=== PATIENT | male | born 1995 ===

== ENCOUNTER → 2023-12-02 | Outpatient (CLI) | payer OTHER ==
[~2023-12-02] MED LIST: ANTIBIOTIC; SULTRIEL PO
[2023-12-02 18:27] LABS: BASOPHILS ABSOLUTE AUTO 0.04 K/mm3 (0.00-0.23); BASOPHILS PERCENT AUTO 1 % (0-2); EOSINOPHILS ABSOLUTE AUTO 0.08 K/mm3 (0.00-0.68); EOSINOPHILS PERCENT AUTO 1 % (0-6); Hematocrit 47.1 % (37.0-53.0); Hemoglobin 15.9 g/dL (13.5-17.5); IMMATURE GRAN ABSOLUTE AUTO 0.01 K/mm3 (0.00-0.10); IMMATURE GRAN PERCENT AUTO 0 % (0-1); LYMPHOCYTES ABSOLUTE AUTO 1.91 K/mm3 (0.84-5.20); LYMPHOCYTES PERCENT AUTO 31 % (21-46); MONOCYTES ABSOLUTE AUTO 0.46 K/mm3 (0.16-1.47); MONOCYTES PERCENT AUTO 8 % (4-13); Mean Corpuscular HGB Conc 33.8 g/dL (31.5-36.5); Mean Corpuscular Volume 86 fL (80-100); Mean Platelet Volume 12.4 fL (9.1-12.4); NEUTROPHILS PERCENT AUTO 59 % (41-73); Platelet Count 219 K/mm3 (150-400); RDW Coefficient Variation 12.8 % (11.7-14.2); RDW Standard Deviation 39.4 fL (35.1-46.3); Red Blood Cell Count 5.48 M/mm3 (4.30-5.90)
[2023-12-02 18:42] LABS: CHOL/HDL RATIO 4.2; Cholesterol 180 mg/dL (50-200); HDL Cholesterol 43 mg/dL (>39); LDL/HDL RATIO 2.9; Low Density Lipoprotein Chol 125 mg/dL (0-110); Triglycerides 62 mg/dL (30-140); Very Low Density Lipoprot Chol 12 mg/dL (6-28)
[2023-12-04 09:27] LABS: BILIRUBIN, TOTAL 0.3 mg/dL (0.0-1.2); CALCIUM, SERUM 9.5 mg/dL (8.7-10.2); CREATININE, SERUM 0.87 mg/dL (0.76-1.27); GLOBULIN, TOTAL 2.5 g/dL (1.5-4.5); POTASSIUM, SERUM 4.7 mmol/L (3.5-5.2); PROTEIN, TOTAL, SERUM 7.6 g/dL (6.0-8.5)
== END | disposition home or self-care (01) ==
LOC: LAB SHORT 11:35 → LAB 11:35
PROVIDERS: Student in an Organized Health Care Education/Training Program
DX: Z13.6 Encounter for screening for cardiovascular disorders (principal); R53.83 Other fatigue
CPT/HCPCS: 80053; 80061; 84443; 85025

== ENCOUNTER 2024-06-21 20:49 | Emergency (ER) | payer OTHER ==
[~2024-06-21] VITALS: Ht 182.9 cm; Wt 97.5 kg
[2024-06-21 21:05] VITALS: BP 156/95
[2024-06-21] MEDS ORDERED: Budeprion Xl300 MG PO (21:30)
[2024-06-21] MEDS ORDERED: Norco 5-325 Ta1 EACH PO (21:30)
[2024-06-21] MEDS ORDERED: ESCI20 PO (21:30)
== END 2024-06-21 21:38 | disposition home or self-care (01) ==
LOC: ER 20:49
DX: M20.011 Mallet finger of right finger(s) (principal)
CPT/HCPCS: 73140; 99283-25

== ENCOUNTER 2025-08-06 06:31 | Day surgery (SDC) | payer OTHER ==
[~2025-08-06] VITALS: Ht 182.9 cm; Wt 93.4 kg
[~2025-08-06 06:31] MED LIST changes: +Budeprion Xl300 MG PO; +ESCI20 PO; +Norco 5-325 Ta1 EACH PO
[2025-08-06] MEDS ORDERED: Lidocaine 1%-Epineph 1:200000 30 ML SDV ONE (06:58)
[2025-08-06] MEDS ORDERED: EPINEPhrine HCl 1 MG / ML 30ML Vial ONE (06:58)
[2025-08-06] MEDS ORDERED: AMIT75 PO (07:20)
[2025-08-06] MEDS ORDERED: Tranexamic Acid 100 ML IV ONE (07:51)
[2025-08-06] MEDS ORDERED: Midazolam HCl 1MG / ML 2ML Vial ONE (08:08)
[2025-08-06] MEDS ORDERED: FentaNYL Citrate 50 MCG/ML 2 ML Injection ONE (08:08)
[2025-08-06] MEDS ORDERED: Sugammadex Sodium 200 MG/2ML SDV (100 MG/ML) ONE (08:42)
--- NOTE | 2025-08-06 09:28 | NUR ---
08/06/25 0928 Radha Gonzalez REPORT RECEIVED FROM SOLO AND RN. PT ASLEEP WITH OA IN PLACE UPON ARRIVAL. ON 8L NRB. PT NOT RESPONSIVE TO VERBAL STIMULI AT THIS TIME. VSS. IV PATENT. NO DRAINAGE ON MUSTACHE DRESSING. HOB AT 30 DEGREES
--- NOTE | 2025-08-06 09:48 | NUR ---
08/06/25 0948 Radha Gonzalez PHONE RETURNED TO PATIENT PER PATIENT REQUEST
[2025-08-06 10:22] VITALS: BP 129/79
[2025-08-06] MEDS ORDERED: Dexamethasone Sod Phos 10 MG/ML 1ML VIAL XX ONE (16:08)
[2025-08-06] MEDS ORDERED: Ketorolac Tromethamine 30mg Vial IV ONE (16:08)
[2025-08-06] MEDS ORDERED: Ondansetron HCl 2 MG / ML 2ML Vial IV ONE (16:08)
[2025-08-06] MEDS ORDERED: Rocuronium Bromide 10 MG/ML 5ML Injection IV ONE (16:08)
== END 2025-08-06 10:46 | disposition home or self-care (01) ==
LOC: ORSCSDS 06:31
PROVIDERS: Otolaryngology
PROC: 09SM0ZZ Reposition Nasal Septum, Open Approach (ICD-10-PCS; principal; 2025-08-06 08:00)
DX: J34.3 Hypertrophy of nasal turbinates (principal); J34.2 Deviated nasal septum; Z79.899 Other long term (current) drug therapy
CPT/HCPCS: A9270; J0165; J1100; J1885; J2250; J2405; J2704; J3010; J7120